=== PATIENT | female | born 1995 | race Caucasian/White ===

== ENCOUNTER 2016-08-01 14:32 | Emergency (ER) | payer OTHER ==
[~2016-08-01] VITALS: Ht 160 cm; Wt 90.9 kg
[~2016-08-01 14:32] MED LIST: DOCU-41 PO; HYDR-4003 PO; IBUP-1827 PO
[2016-08-01 14:45] VITALS: BP 147/91; PULSE 94; RESP 14; O2SAT 98
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
[2016-08-01 17:11] VITALS: BP 138/82; PULSE 107; RESP 14; O2SAT 98
== END 2016-08-01 17:00 | disposition home or self-care (01) ==
LOC: EDUNIT# 14:32 → SED 14:32 → EDBD 14:32 → SED 17:00
DX: R51 Headache (principal); S09.90XA Unspecified injury of head, initial encounter; S13.9XXA Sprain of joints and ligaments of unspecified parts of neck, initial encounter; V48.6XXA Car passenger injured in noncollision transport accident in traffic accident, initial encounter; W22.19XA Striking against or struck by other automobile airbag, initial encounter; Y93.89 Activity, other specified; Y92.410 Unspecified street and highway as the place of occurrence of the external cause; Y99.8 Other external cause status